=== PATIENT | female | born 1935 | race Caucasian/White ===

== ENCOUNTER 2017-01-30 11:43 | Inpatient (IN) | payer MEDICARE, OTHER ==
[2017-01-30] MEDS ORDERED: Sodium Chloride 0.9% 10 ML Syringe FLUSH PRN (15:30)
[2017-01-30] MEDS ORDERED: Temazepam 15 MG Cap PO PRN (15:30)
[2017-01-30] MEDS ORDERED: Magnesium Hydroxide 400 MG/5 ML Susp 30 ML Cup PO PRN (15:30)
[2017-01-30 16:25] LABS: CHLORIDE,CL 100 mEq/L (98-106); SODIUM,NA 138 mEq/L (136-145)
[2017-01-30] MEDS: Enoxaparin 40 MG/0.4 ML Syringe SUBCUT SCH (19:00)
[2017-01-30] MEDS: Insulin Aspart 100 Units/ML 3 ML Pen SUBCUT SCH (19:01)
[2017-01-30] MEDS: Levothyroxine 150 MCG Tab PO SCH (19:37)
[2017-01-30] MEDS: metFORMIN 500 MG Tab PO SCH (19:37)
[2017-01-30] MEDS: Insulin Detemir 100 Units/ML 3 ML Pen SUBCUT SCH (20:32)
[2017-01-31] MEDS ORDERED: Aspirin 325 MG Tab PO SCH (08:00)
[2017-01-31] MEDS: metFORMIN 500 MG Tab PO SCH ×2 (08:39→19:38)
[2017-01-31] MEDS: Metoprolol Succinate 25 MG Tab.ER PO SCH (08:40)
[2017-01-31] MEDS: Lisinopril 5 MG Tab PO SCH (08:40)
[2017-01-31] MEDS: Insulin Aspart 100 Units/ML 3 ML Pen SUBCUT SCH ×2 (08:42→12:05)
[2017-01-31] MEDS ORDERED: Cholecalciferol (Vitamin D3) 1,000 Unit Tab PO SCH (17:00)
[2017-01-31] MEDS ORDERED: Insulin Aspart 100 Units/ML 3 ML Pen SUBCUT SCH (17:00)
[2017-01-31] MEDS ORDERED: Simvastatin 10 MG Tab PO SCH (17:00)
[2017-01-31] MEDS: Enoxaparin 40 MG/0.4 ML Syringe SUBCUT SCH (17:46)
[2017-01-31] MEDS: Aspirin/Dipyridamole 200-25 MG Cap.ER PO SCH (19:38)
[2017-01-31] MEDS: Levothyroxine 150 MCG Tab PO SCH (19:39)
[2017-01-31] MEDS: Insulin Detemir 100 Units/ML 3 ML Pen SUBCUT SCH (20:43)
--- NOTE | 2017-02-01 06:58 | PN ---
DATE: 01/31/2017 S: Donna Burkett admitted with a TIA. Her CTA of her head and neck shows just a 50% blockage of the right carotid. O: HEENT: The patient has still difficulty with speech, but improving. NECK: Supple. CHEST: Clear. CARDIAC: Regular. Echo pending. ASSESSMENT: TRANSIENT ISCHEMIC ATTACK. P: I am going to start her on some Aggrenox today. RHONDA/JOESPH /[id number]
[2017-02-01] MEDS: Lisinopril 5 MG Tab PO SCH (07:34)
[2017-02-01] MEDS: Aspirin/Dipyridamole 200-25 MG Cap.ER PO SCH (07:35)
[2017-02-01] MEDS: metFORMIN 500 MG Tab PO SCH (07:35)
[2017-02-01] MEDS: Metoprolol Succinate 25 MG Tab.ER PO SCH (07:36)
[2017-02-01] MEDS: Insulin Aspart 100 Units/ML 3 ML Pen SUBCUT SCH (07:36)
[2017-02-01 07:37] VITALS: BP 153/84
[2017-02-01] MEDS ORDERED: Insulin Aspart 100 Units/ML 3 ML Pen SUBCUT SCH (17:30)
[2017-02-02] MEDS ORDERED: Insulin Aspart 100 Units/ML 3 ML Pen SUBCUT SCH (08:00)
--- NOTE | 2017-02-04 08:18 | DISCH ---
HISTORY: Donna Burkett comes in with a TIA with loss of speech. She was in the hospital, placed on observation, also had some chest pain. Placed on telemetry that was fine. Lab, x-ray, and troponins x2 were good. CBC and urine looked good, other than glycosuria. Blood sugars were somewhat elevated 76 on the day of discharge. I did do a CTA of the head and neck, had some carotid stenosis. Echocardiogram looks normal. DISCHARGE MEDICATIONS: Home medications minus aspirin plus Aggrenox b.i.d. DISCHARGE DIAGNOSIS: 1. TRANSIENT ISCHEMIC ATTACK. 2. DIABETES MELLITUS. 3. HYPOTHYROIDISM. 4. HYPERTENSION. 5. HYPERLIPIDEMIA. RHONDA/JOESPH /[id number]
== END 2017-02-01 10:57 | disposition home or self-care (01) | DRG 69 ==
LOC: CC.ACU 11:43 → UNDOADMIN 14:16 → CC.MS 14:16
PROVIDERS: ADMIT General Practice; ATTEND General Practice
DX: R51 Headache (principal); G45.9 Transient cerebral ischemic attack, unspecified; R07.9 Chest pain, unspecified; M19.90 Unspecified osteoarthritis, unspecified site; E78.00 Pure hypercholesterolemia, unspecified; R42 Dizziness and giddiness; I10 Essential (primary) hypertension; E11.9 Type 2 diabetes mellitus without complications; Z79.4 Long term (current) use of insulin; R53.83 Other fatigue; Z86.73 Personal history of transient ischemic attack (TIA), and cerebral infarction without residual deficits; E03.9 Hypothyroidism, unspecified; R79.0 Abnormal level of blood mineral; R35.1 Nocturia; Z88.8 Allergy status to other drugs, medicaments and biological substances; Z79.82 Long term (current) use of aspirin; Z79.899 Other long term (current) drug therapy; I65.29 Occlusion and stenosis of unspecified carotid artery; E78.5 Hyperlipidemia, unspecified
CPT/HCPCS: 82962; Q3014; 36415; 70496; 70498; 71020; 80053; 81001; 82550; 83615; 83735; 83880; 84443; 84484; 85025; 85379; 85610; 86140; 93005; 93306; A9270-GY; J1650; J1815-GY; Q9967

== ENCOUNTER 2018-01-06 16:36 | Observation (INO) | payer MEDICARE, OTHER ==
--- NOTE | 2018-01-06 17:16 | EDM.PDOC ---
ED HPI GENERAL MEDICAL PROBLEM - General Chief Complaint: General Stated Complaint: hypoglycemia, falls Time Seen by Provider: 01/06/18 16:55 Source of Information: Reports: Patient History Limitations: Reports: No Limitations - History of Present Illness INITIAL COMMENTS - FREE TEXT/NARRATIVE: Donna is a pleasant 82 year old female with PMH of hypertension, hyperlipidemia, and type II DM, who presents to the ED via [facility] with c/o multiple falls and weakness this afternoon. She reports that this morning she was feeling well. She reports she was outside this afternoon when she got very weak and fell over. She reports she tried to get up and get back into the house but was unable to and fell a few more times trying to get up, as she was so weak. She reports she did "lose consciousness." She was unable to get up so she pushed her Life Alert and EMS arrived. EMS reports on arrival she was standing leaning on her car in the garage. Initially her blood glucose was 33. She reports she is a type II DM. She reports that her blood sugar this morning was 87. She reports she took 9 units Novolog. She then reports her blood sugar at noon was "over 100." She reports she took her insulin. She thinks it was 6 units of novolog. EMS staff report that they gave her some apple juice and her blood sugar came up to 86. She reports she has been eating and drinking per normal. She reports she had a bowl of cereal for breakfast and a bowl of soup and some crackers for lunch. She has been taking her medications as prescribed. She is on 28 units of basalglar at HS, 9 units of novolog in the am, 6 at noon, and 7 at HS. She is also on metformin 1000 mg in am and 500 at supper. She denies any N/V/D, abdominal pain, urinary symptoms, chest pain, shortness of breath, cough , fever, chills. She has no complaints other than her "legs are jerky." She does c/o some lower back pain. Reports it is not severe. Denies any numbness, tingling, radiation of pain, or weakness in either legs. Onset: Today, Sudden Duration: Resolved Prior to Arrival Back Pain Score (Numeric/FACES): 3 - Related Data Allergies Allergy/AdvReac Type Severity Reaction Status Date / Time promethazine HCl AdvReac Mild restless Verified 01/06/18 17:36 [From Phenergan] legs Home Meds: Home Meds Ascorbate Calcium [Vitamin C] 500 mg PO 1700 01/20/15 [History] Beta-Carotene(A) W-C & E/Min [Vision Vitamins] 1 tab PO 1700 01/20/15 [History] Cholecalciferol (Vitamin D3) [Vitamin D3] 2,000 unit PO 1700 01/20/15 [History] Insulin Aspart [NovoLOG] 6 units SUBCUT 1200 01/20/15 [History] Insulin Aspart [NovoLOG] 7 units SUBCUT 1700 01/20/15 [History] Insulin Aspart [NovoLOG] 9 units SUBCUT 0830 01/20/15 [History] Levothyroxine Sodium [Synthroid] 75 mcg PO BEDTIME 01/20/15 [History] Metoprolol Succinate 50 mg PO DAILY 01/20/15 [History] Simvastatin [Zocor] 10 mg PO 1700 01/20/15 [History] Vitamin B Complex 1 tab PO 169901/20/15 [History] Vitamin E 1,000 unit PO 0 01/20/15 [History] metFORMIN [Glucophage] 1,000 mg PO QAM 01/20/15 [History] Lisinopril 5 mg PO DAILY 01/30/17 [History] Magnesium Oxide [Magnesium] 500 mg PO DAILY 01/30/17 [History] Propylene Glycol/PEG 400/Pf [Systane 0.3-0.4% Eye Drops] 1 each OP DAILY [History] Clopidogrel Bisulfate [Clopidogrel] 75 mg PO DAILY 01/06/18 [History] Insulin Glargine,Hum.Rec.Anlog [Basaglar Kwikpen U-100] 28 unit SQ QPM 01/06/18 [History] Past Medical History HEENT History: Reports: Cataract Cardiovascular History: Reports: Blood Clots/VTE/DVT Gastrointestinal History: Reports: Other (See Below) Other Gastrointestinal History: Gall bladder surgery in 1989. Endocrine/Metabolic History: Reports: Diabetes, Type II, Other (See Below) Other Endocrine/Metabolic History: Thyroid surgery - Past Surgical History Musculoskeletal Surgical History: Reports: Arthroscopic Knee Social & Family History - Tobacco Use Smoking Status *Q: Never Smoker Years of Tobacco use: 15 Used Tobacco, but Quit: Yes Month/Year Tobacco Last Used: unknown Second Hand Smoke Exposure: No - Recreational Drug Use Recreational Drug Use: No ED ROS GENERAL - Review of Systems Review Of Systems: ROS reveals no pertinent complaints other than HPI. Constitutional: Reports: Weakness. Denies: Fever, Chills, Malaise, Fatigue, Decreased Appetite HEENT: Reports: No Symptoms Respiratory: Reports: No Symptoms. Denies: Shortness of Breath, Cough Cardiovascular: Reports: No Symptoms, Lightheadedness. Denies: Chest Pain, Dyspnea on Exertion, Edema, Syncope Endocrine: Reports: Low Glucose. Denies: Fatigue GI/Abdominal: Reports: No Symptoms. Denies: Abdominal Pain, Constipation, Diarrhea, Decreased Appetite, Nausea, Vomiting : Reports: No Symptoms. Denies: Dysuria, Frequency, Urgency Musculoskeletal: Reports: Back Pain Skin: Reports: Other (small abrasion to right cheek and under right nostril) Neurological: Reports: No Symptoms, Dizziness, Weakness. Denies: Confusion, Numbness, Tingling Psychiatric: Reports: No Symptoms Hematologic/Lymphatic: Reports: No Symptoms Immunologic: Reports: No Symptoms ED EXAM, GENERAL - Physical Exam Exam: See Below Exam Limited By: No Limitations General Appearance: Alert, WD/WN, No Apparent Distress Eye Exam: Bilateral Eye: PERRL Nose: Other (small abrasion under right nostrl) Head: Atraumatic, Normocephalic Neck: Normal Inspection, Supple, Non-Tender, Full Range of Motion Respiratory/Chest: No Respiratory Distress, Lungs Clear, Normal Breath Sounds, No Accessory Muscle Use, Chest Non-Tender Cardiovascular: Normal Peripheral Pulses, Regular Rate, Rhythm, No Edema, No Gallop, No JVD, No Murmur, No Rub Peripheral Pulses: 2+: Dorsalis Pedis (L), Dorsalis Pedis (R) GI/Abdominal: Normal Bowel Sounds, Soft, Non-Tender, No Organomegaly, No Distention, No Abnormal Bruit, No Mass Back Exam: Normal Inspection, Full Range of Motion. No: Paraspinal Tenderness, Vertebral Tenderness Extremities: Normal Inspection, Normal Range of Motion, Non-Tender, Normal Capillary Refill, No Pedal Edema Neurological: Alert, Oriented, CN II-XII Intact, Normal Cognition, Normal Gait, Normal Reflexes, No Motor/Sensory Deficits Psychiatric: Normal Affect, Normal Mood Skin Exam: Warm, Dry, Intact, Normal Color, No Rash Lymphatic: No Adenopathy Course - Vital Signs Last Recorded V/S: Last Vital Signs Temp 98.3 F 01/06/18 16:44 Pulse 95 01/06/18 18:09 Resp 16 01/06/18 16:44 BP 167/90 H 01/06/18 18:09 Pulse Ox 97 01/06/18 16:44 - Orders/Labs/Meds Orders: Active Orders 24 hr Category Date Time Status UA W/MICROSCOPIC [URIN] Stat Lab 01/06/18 17:00 Ordered Lactated Ringers [Ringers, Lactated] 1,000 ml Med 01/06/18 18:03 Active IV .BOLUS Medication Orders Lactated Ringer's (Ringers, Lactated) 1,000 mls @ 999 mls/hr IV .BOLUS ONE Stop: 01/06/18 19:03 Last Admin: 01/06/18 18:12 Dose: 999 mls/hr Labs: Laboratory Tests 01/06/18 01/06/18 01/06/18 Range/Units 16:53 17:00 17:00 WBC 9.3 (5.0-10.0) 10^3/uL RBC 4.71 (4.00-5.50) 10^6/uL Hgb 13.5 (12.0-16.0) g/dL Hct 41.8 (37.0-47.0) % MCV 88.7 (82.0-94.0) fL MCH 28.7 (27.0-32.0) pg MCHC 32.3 L (33.0-38.0) g/dL RDW Coeff of John 13.7 (11.0-15.0) % Plt Count 232 (150-400) 10^3/uL Neut % (Auto) 81.6 (35-85) % Lymph % (Auto) 9.8 L (10-55) % [place] % (Auto) 7.2 (0-16) % Eos % (Auto) 1.3 (0-5) % Baso % (Auto) 0.1 (0-3) % Neut # (Auto) 7.62 H (1.80-7.00) 10^3/uL Lymph # (Auto) 0.91 L (1.00-4.80) 10^3/uL [place] # (Auto) 0.67 (0.00-0.80) 10^3/uL Eos # (Auto) 0.12 (0.00-0.45) 10^3/uL Baso # (Auto) 0.01 10^3/uL Sodium 140 (136-145) mEq/L Potassium 3.8 (3.5-5.0) mEq/L Chloride 101 (98-106) mEq/L Carbon Dioxide 29 (21-32) mmol/L BUN 13 (7-18) mg/dL Creatinine 0.7 (0.6-1.0) mg/dL Est Cr Clr Drug Dosing 47.56 mL/min Estimated GFR (MDRD) > 60 (>=60) mL/min Glucose 106 H (75-99) mg/dL Calcium 9.9 (8.4-10.1) mg/dL Total Bilirubin 0.5 (0.0-1.0) mg/dL AST 20 (15-37) U/L ALT 23 (12-78) U/L Alkaline Phosphatase 71 (46-116) U/L C-Reactive Protein < 0.2 L (0.2-0.8) mg/dL Total Protein 7.5 (6.4-8.2) g/dL Albumin 4.1 (3.4-5.0) g/dL Urine Color Light yellow (YELLOW) Urine Appearance Clear (CLEAR) Urine pH 5.5 (4.5-8.0) Ur Specific [place] 1.015 (1.003-1.020) Urine Protein Trace H (NEGATIVE) mg/dL Urine Glucose (UA) Negative (NEGATIVE) mg/dL Urine Ketones Negative (NEGATIVE) mg/dL Urine Occult Blood Negative (NEGATIVE) Urine Nitrite Negative (NEGATIVE) Urine Bilirubin Negative (NEGATIVE) Urine Urobilinogen 0.2 (0.2-1.0) EU/dL Ur Leukocyte Esterase Negative (NEGATIVE) Urine RBC Not seen (0-5) /HPF Urine WBC 0-5 (0-5) /HPF Ur Squamous Epith Cells Occasional H (NOT SEEN) /HPF Meds: Medications Generic Name Dose Route Start Last Admin Trade Name Freq PRN Reason Stop Dose Admin Lactated Ringer's 1,000 mls @ 999 mls/hr 01/06/18 18:03 01/06/18 18:12 Ringers, Lactated IV 01/06/18 19:03 999 mls/hr .BOLUS ONE Administration Discontinued Medications Generic Name Dose Route Start Last Admin Trade Name Nahid PRN Reason Stop Dose Admin Metoprolol Tartrate 2.5 mg 01/06/18 18:08 01/06/18 18:09 Lopressor IVPUSH 01/06/18 18:09 2.5 mg ONETIME ONE Administration - Re-Assessments/Exams Free Text/Narrative Re-Assessment/Exam: 01/06/18 18:00 Discussed labs with patient. Will admit patient to observation with telemetry to Dr. Farnsworth overnight for monitoring of blood sugars, blood pressure, and pulse. Daughter Adenike notified of plan. Patient agreeable to admission. Departure - Departure Time of Disposition: 18:35 Disposition: Refer to Observation Condition: Good Clinical Impression: Type II diabetes mellitus Qualifiers: Diabetes mellitus termite treater insulin use: with termite treater use Diabetes mellitus complication status: with hypoglycemia Diabetes mellitus complication detail: without coma Qualified Code(s): E11.649 - Type 2 diabetes mellitus with hypoglycemia without coma; Z79.4 - USP (current) use of insulin Hypertension Qualifiers: Hypertension type: unspecified Qualified Code(s): I10 - Essential (primary) hypertension - Discharge Information Forms: ED Department Discharge - Problem List & Annotations (1) Hypertension SNOMED Code(s): 34895194 Code(s): I10 - ESSENTIAL (PRIMARY) HYPERTENSION Status: Acute Current Visit: Yes Qualifiers: Hypertension type: unspecified Qualified Code(s): I10 - Essential (primary ) hypertension (2) Type II diabetes mellitus SNOMED Code(s): 68589507 Code(s): E11.9 - TYPE 2 DIABETES MELLITUS WITHOUT COMPLICATIONS Status: Acute Current Visit: Yes Qualifiers: Diabetes mellitus longterm insulin use: with termite treater use Diabetes mellitus complication status: with hypoglycemia Diabetes mellitus complication detail: without coma Qualified Code(s): E11.649 - Type 2 diabetes mellitus with hypoglycemia without coma; Z79.4 - USP (current) use of insulin - Problem List Review Problem List Initiated/Reviewed/Updated: Yes - My Orders Last 24 Hours: My Active Orders 01/06/18 17:00 UA W/MICROSCOPIC [URIN] Stat 01/06/18 18:03 Lactated Ringers [Ringers, Lactated] 1,000 ml IV .BOLUS - Assessment/Plan Admission H&P: Please use this note as an admission H&P Last 24 Hours: My Active Orders 01/06/18 17:00 UA W/MICROSCOPIC [URIN] Stat 01/06/18 18:03 Lactated Ringers [Ringers, Lactated] 1,000 ml IV .BOLUS Plan: Admit to observation with telemetry to Dr. Farnsworth Monitor blood glucose and blood pressure overnight Dr. Fanrsworth to see in am.
[2018-01-06 17:21] LABS: CHLORIDE,CL 101 mEq/L (98-106); SODIUM,NA 140 mEq/L (136-145)
[2018-01-06] MEDS ORDERED: Lactated Ringers 500 ML IV ONE (17:39)
[2018-01-06] MEDS ORDERED: Metoprolol Tartrate 5 MG/5 ML SDV IVPUSH ONE ×2 (17:40→18:08)
[2018-01-06] MEDS ORDERED: Lactated Ringers 1,000 ML IV ONE (18:03)
[2018-01-06] MEDS ORDERED: Acetaminophen 325 MG Tab PO PRN (19:13)
[2018-01-06] MEDS ORDERED: Temazepam 15 MG Cap PO PRN (19:13)
[2018-01-06] MEDS ORDERED: Sodium Chloride 0.9% 10 ML Syringe FLUSH PRN (19:13)
[2018-01-06] MEDS ORDERED: Ondansetron 4 MG/2 ML SDV IV PRN (19:13)
[2018-01-06] MEDS ORDERED: Magnesium Hydroxide 400 MG/5 ML Susp 30 ML Cup PO PRN (19:13)
[2018-01-06] MEDS ORDERED: metFORMIN 500 MG Tab PO SCH (20:00)
[2018-01-06] MEDS ORDERED: Enoxaparin 40 MG/0.4 ML Syringe SUBCUT SCH (20:00)
[2018-01-06] MEDS ORDERED: Levothyroxine 150 MCG Tab PO SCH (20:00)
[2018-01-06] MEDS: Insulin Aspart 100 Units/ML 3 ML Pen SUBCUT SCH (20:16)
[2018-01-07] MEDS: Insulin Aspart 100 Units/ML 3 ML Pen SUBCUT SCH ×2 (07:48→12:05)
[2018-01-07] MEDS ORDERED: Metoprolol Succinate 25 MG Tab.ER PO SCH (08:00)
[2018-01-07] MEDS ORDERED: Clopidogrel 75 MG Tab PO SCH (08:00)
[2018-01-07] MEDS ORDERED: metFORMIN 500 MG Tab PO SCH (08:00)
[2018-01-07] MEDS ORDERED: Lisinopril 5 MG Tab PO SCH (08:00)
[2018-01-07 11:53] VITALS: BP 141/65
[2018-01-07] MEDS ORDERED: Simvastatin 10 MG Tab PO SCH (17:00)
--- NOTE | 2018-01-08 09:20 | DISCH ---
HOSPITAL COURSE: This 82-year-old white female came in by ambulance with hypoglycemic reaction with blood sugar around 30, admitted to the hospital, blood pressure was up for observation. PHYSICAL EXAMINATION: At the time of discharge exam: NECK: Supple. CHEST: Clear. CARDIAC: Regular. NEUROLOGIC: Patient alert and oriented. VITAL SIGNS: Blood pressure was down to fairly good range. LABORATORY DATA: Blood sugars were elevated because she did not have her insulin last night. Rest of labs here in the hospital, a low magnesium so I advised that she go ahead and double her magnesium. CBC looked good. Panel 8 looked good. TSH was good. C-reactive protein was good. Urinalysis looked good. DISPOSITION: The patient is now discharged home. We will see her back in the clinic and we can do a 2-hour postprandial blood sugar. DISCHARGE MEDICATIONS: Home medications plus increase in the magnesium to 500 b.i.d. DISCHARGE DIAGNOSIS: 1. DIABETES MELLITUS WITH HYPOGLYCEMIC REACTION. 2. HYPOTHYROIDISM. 3. HYPERTENSION. 4. HYPERLIPIDEMIA. RHONDA/JOESPH /[id number]
== END 2018-01-07 14:00 | disposition home or self-care (01) ==
LOC: CC.ED 16:36 → CC.MS 18:30 → UNDOADMOB 18:30 → CC.MS 18:38
PROVIDERS: ADMIT Nurse Practitioner Family; ATTEND General Practice
DX: E11.649 Type 2 diabetes mellitus with hypoglycemia without coma (principal); E03.9 Hypothyroidism, unspecified; I10 Essential (primary) hypertension; E78.5 Hyperlipidemia, unspecified; W19.XXXA Unspecified fall, initial encounter; Z88.8 Allergy status to other drugs, medicaments and biological substances; Z79.4 Long term (current) use of insulin; Z79.899 Other long term (current) drug therapy
CPT/HCPCS: 36415; 80053; 81001; 82962; 83735; 84443; 85025; 86140; 93005; 96372; 96374; 99285; A9270-GY; G0378; J1650; J3490; J7120

== ENCOUNTER 2018-06-24 13:33 | Observation (INO) | payer MEDICARE, OTHER ==
[2018-06-24 13:59] LABS: CHLORIDE,CL 98 mEq/L (98-106); SODIUM,NA 133 mEq/L (136-145)
[2018-06-24] MEDS ORDERED: Magnesium Hydroxide 400 MG/5 ML Susp 30 ML Cup PO PRN (16:49)
[2018-06-24] MEDS ORDERED: Temazepam 15 MG Cap PO PRN (16:49)
[2018-06-24] MEDS ORDERED: Acetaminophen 325 MG Tab PO PRN (16:49)
[2018-06-24] MEDS: Insuln Aspart Prot/Insulin Aspart 100 Units/ML 3 ML FlexPen SUBCUT SCH (17:44)
[2018-06-24] MEDS: Insulin Aspart 100 Units/ML 3 ML Pen SUBCUT SCH ×2 (17:44→20:56)
[2018-06-24] MEDS: Enoxaparin 30 MG/0.3 ML Syringe SUBCUT SCH (17:45)
[2018-06-24] MEDS ORDERED: Sodium Chloride 0.9% 1,000 ML IV SCH (18:00)
[2018-06-24] MEDS: LEVOTHYROXINE SODIUM 75 MCG PO SCH ×2 (19:56→20:03)
[2018-06-25] MEDS: LEVOTHYROXINE 75 MCG PO SCH ×2 (06:52→08:32)
[2018-06-25] MEDS: METOPROLOL SUCCINATE 50 MG PO SCH (08:27)
[2018-06-25] MEDS: **PTOM** Lisinopril 10 MG Tab PO SCH (08:28)
[2018-06-25] MEDS: Insulin Aspart 100 Units/ML 3 ML Pen SUBCUT SCH ×4 (08:30→20:59)
[2018-06-25] MEDS: Insuln Aspart Prot/Insulin Aspart 100 Units/ML 3 ML FlexPen SUBCUT SCH ×2 (08:31→17:30)
--- NOTE | 2018-06-25 11:46 | PCM.PN ---
- General Info Date of Service: 06/25/18 Admission Dx/Problem (Free Text): TIA Functional Status: Reports: Pain Controlled, Tolerating Diet. Denies: Ambulating - Review of Systems General: Reports: Weakness. Denies: Fever, Fatigue HEENT: Reports: No Symptoms Pulmonary: Denies: Shortness of Breath, Cough, Sputum Cardiovascular: Denies: Chest Pain, Edema, Lightheadedness Gastrointestinal: Denies: Abdominal Pain, Nausea, Vomiting Genitourinary: Reports: No Symptoms Musculoskeletal: Reports: No Symptoms Skin: Reports: No Symptoms Neurological: Reports: Confusion (confusion is improved from admit), Weakness - Patient Data Vitals - Most Recent: Last Vital Signs Temp 97.8 F 06/25/18 08:00 Pulse 79 06/25/18 08:00 Resp 18 06/25/18 08:00 BP 148/68 H 06/25/18 08:28 Pulse Ox 97 06/25/18 08:00 Weight - Most Recent: 139 lb Lab Results Last 24 Hours: Laboratory Results - last 24 hr 06/24/18 06/24/18 06/24/18 Range/Units 13:39 13:39 13:39 WBC 6.9 (5.0-10.0) 10^3/uL RBC 4.68 (4.00-5.50) 10^6/uL Hgb 13.6 (12.0-16.0) g/dL Hct 40.9 (37.0-47.0) % MCV 87.4 (82.0-94.0) fL MCH 29.1 (27.0-32.0) pg MCHC 33.3 (33.0-38.0) g/dL RDW Coeff of John 13.6 (11.0-15.0) % Plt Count 204 (150-400) 10^3/uL Neut % (Auto) 72.6 (35-85) % Lymph % (Auto) 16.2 (10-55) % [place] % (Auto) 10.0 (0-16) % Eos % (Auto) 0.9 (0-5) % Baso % (Auto) 0.3 (0-3) % Neut # (Auto) 5.03 (1.80-7.00) 10^3/uL Lymph # (Auto) 1.12 (1.00-4.80) 10^3/uL [place] # (Auto) 0.69 (0.00-0.80) 10^3/uL Eos # (Auto) 0.06 (0.00-0.45) 10^3/uL Baso # (Auto) 0.02 10^3/uL Sodium 133 L (136-145) mEq/L Potassium 4.2 (3.5-5.0) mEq/L Chloride 98 (98-106) mEq/L Carbon Dioxide 29 (21-32) mmol/L BUN 11 (7-18) mg/dL Creatinine 0.8 (0.6-1.0) mg/dL Est Cr Clr Drug Dosing TNP Estimated GFR (MDRD) > 60 (>=60) mL/min Glucose 155 H (75-99) mg/dL POC Glucose (75-105) mg/dl Calcium 9.2 (8.4-10.1) mg/dL C-Reactive Protein < 0.2 L (0.2-0.8) mg/dL Urine Color Yellow (YELLOW) Urine Appearance Clear (CLEAR) Urine pH 7.0 (4.5-8.0) Ur Specific [place] 1.015 (1.003-1.020) Urine Protein Negative (NEGATIVE) mg/dL Urine Glucose (UA) Negative (NEGATIVE) mg/dL Urine Ketones 15 H (NEGATIVE) mg/dL Urine Occult Blood Negative (NEGATIVE) Urine Nitrite Negative (NEGATIVE) Urine Bilirubin Negative (NEGATIVE) Urine Urobilinogen 0.2 (0.2-1.0) EU/dL Ur Leukocyte Esterase Trace H (NEGATIVE) Urine RBC Not seen (0-5) /HPF Urine WBC 0-5 (0-5) /HPF Ur Squamous Epith Cells Occasional H (NOT SEEN) /HPF Urine Bacteria Occasional H (NOT SEEN) /HPF 06/24/18 06/24/18 06/25/18 Range/Units 17:06 20:10 07:26 WBC (5.0-10.0) 10^3/uL RBC (4.00-5.50) 10^6/uL Hgb (12.0-16.0) g/dL Hct (37.0-47.0) % MCV (82.0-94.0) fL MCH (27.0-32.0) pg MCHC (33.0-38.0) g/dL RDW Coeff of John (11.0-15.0) % Plt Count (150-400) 10^3/uL Neut % (Auto) (35-85) % Lymph % (Auto) (10-55) % [place] % (Auto) (0-16) % Eos % (Auto) (0-5) % Baso % (Auto) (0-3) % Neut # (Auto) (1.80-7.00) 10^3/uL Lymph # (Auto) (1.00-4.80) 10^3/uL [place] # (Auto) (0.00-0.80) 10^3/uL Eos # (Auto) (0.00-0.45) 10^3/uL Baso # (Auto) 10^3/uL Sodium (136-145) mEq/L Potassium (3.5-5.0) mEq/L Chloride (98-106) mEq/L Carbon Dioxide (21-32) mmol/L BUN (7-18) mg/dL Creatinine (0.6-1.0) mg/dL Est Cr Clr Drug Dosing Estimated GFR (MDRD) (>=60) mL/min Glucose (75-99) mg/dL POC Glucose 118 H 280 H 187 H (75-105) mg/dl Calcium (8.4-10.1) mg/dL C-Reactive Protein (0.2-0.8) mg/dL Urine Color (YELLOW) Urine Appearance (CLEAR) Urine pH (4.5-8.0) Ur Specific [place] (1.003-1.020) Urine Protein (NEGATIVE) mg/dL Urine Glucose (UA) (NEGATIVE) mg/dL Urine Ketones (NEGATIVE) mg/dL Urine Occult Blood (NEGATIVE) Urine Nitrite (NEGATIVE) Urine Bilirubin (NEGATIVE) Urine Urobilinogen (0.2-1.0) EU/dL Ur Leukocyte Esterase (NEGATIVE) Urine RBC (0-5) /HPF Urine WBC (0-5) /HPF Ur Squamous Epith Cells (NOT SEEN) /HPF Urine Bacteria (NOT SEEN) /HPF Med Orders - Current: Current Medications Acetaminophen (Tylenol) 650 mg PO Q4H PRN PRN Reason: Pain (Mild 1-3)/fever Clopidogrel Bisulfate (Plavix) 75 mg PO DAILY DIMA Last Admin: 06/25/18 08:28 Dose: 75 mg Enoxaparin Sodium (Lovenox) 30 mg SUBCUT Q24H [facility] Last Admin: 06/24/18 17:45 Dose: 30 mg Insulin Aspart (Novolog) 0 unit SUBCUT WITHMEALSANDBED [facility]; Protocol Last Admin: 06/25/18 08:30 Dose: 2 units Insulin Aspart (Novolog Mix 70-30) 10 unit SUBCUT WITHDINNER [facility] Last Admin: 06/24/18 17:44 Dose: 10 units Insulin Aspart (Novolog Mix 70-30) 20 unit SUBCUT WITHBREAKFAST [facility] Last Admin: 06/25/18 08:31 Dose: 20 unit Lisinopril (Prinivil) 10 mg PO DAILY [facility] Last Admin: 06/25/18 08:28 Dose: 10 mg Magnesium Hydroxide (Milk Of Magnesia) 30 ml PO Q12H PRN PRN Reason: Constipation Ptom Metoprolol Succinate [ Metoprolol Succinate ] 50 Mg 50 mg PO DAILY [facility] Last Admin: 06/25/18 08:27 Dose: 50 mg Levothyroxine 75 Mcg (Own Med) 75 mcg PO DAILY [facility] Last Admin: 06/25/18 08:32 Dose: Not Given Temazepam (Restoril) 15 mg PO BEDTIME PRN PRN Reason: Sleep Discontinued Medications Sodium Chloride (Normal Saline) 1,000 mls @ 75 mls/hr IV ASDIRECTED [facility] Stop: 06/25/18 07:19 Last Admin: 06/24/18 17:45 Dose: 75 mls/hr Ptom Levothyroxine Sodium [Synthroid] 75 Mcg 75 mcg PO BEDTIME [facility] Last Admin: 06/24/18 20:03 Dose: Not Given - Exam General: Alert, Oriented HEENT: Mucous Membr. Moist/[place] Neck: Supple Lungs: Clear to Auscultation, Normal Respiratory Effort Cardiovascular: Regular Rate, Regular Rhythm GI/Abdominal Exam: Normal Bowel Sounds, Soft, Non-Tender Back Exam: Normal Inspection Extremities: Normal Inspection, No Pedal Edema - Problem List & Annotations (1) TIA (transient ischemic attack) SNOMED Code(s): 560129430 Code(s): G45.9 - TRANSIENT CEREBRAL ISCHEMIC ATTACK, UNSPECIFIED Status: Acute Priority: High Current Visit: Yes - Problem List Review Problem List Initiated/Reviewed/Updated: Yes - Assessment Assessment:: TIA - Plan Plan:: Patient admits to feeling well today. She denies that she was confused yesterday and tries to rationalize why she parked on the handicap ramp in front of physical therapy, clothing was inside out and she relates that she drove "just fine" and she "will wear her clothing inside out sometimes as it is dark when I get dressed". She was seen by DR. 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 Admitted with concerns of TIA. Is currently on Plavix. Patient denies any weakness today, no dysphagia. Is oriented x3, answers questions appropriately today. Daughter called, is concerned that patient may be having issues with depression as well. CT of the head yesterday was negative. All labs essentially negative as well. Will continue with PT consult today, have patient ambulate in [place] and monitor for another day. May need to have patient discharged with daughter to monitor more closely as she lives alone out by [place].
[2018-06-25] MEDS: Enoxaparin 30 MG/0.3 ML Syringe SUBCUT SCH (18:33)
[2018-06-26] MEDS: LEVOTHYROXINE 75 MCG PO SCH (07:32)
[2018-06-26] MEDS: **PTOM** Lisinopril 10 MG Tab PO SCH (08:26)
[2018-06-26] MEDS: METOPROLOL SUCCINATE 50 MG PO SCH (08:27)
[2018-06-26] MEDS: Insuln Aspart Prot/Insulin Aspart 100 Units/ML 3 ML FlexPen SUBCUT SCH (08:28)
[2018-06-26] MEDS: Insulin Aspart 100 Units/ML 3 ML Pen SUBCUT SCH ×2 (08:29→11:58)
[2018-06-26 13:00] VITALS: BP 134/75
--- NOTE | 2018-06-26 21:24 | PCM.DCSUM1 ---
Discharge Summary - Hospital Course Free Text/Narrative:: Patient was admitted to observation for concerns with TIA. Patient had driven to [place] as she relates she wasn't feeling well. Had pulled up in the front of physical therapy, parked on the side walk and left care door open. Clothing was inside out. PT states she seemed confused so was seen by Jenn. Patient related that she was not feeling well last night, felt weak, was incontinent of urine. [place] she needed to be evaluated as "things just didn't seem right". She questions if she had a low blood sugar. Dr. Hernandez had seen patient 3 weeks ago with weakness and reported confusion. Had EKG and carotid ultrasound that were normal. MRI of the brain was done and showed CVA. Had also been advised to change her insulin to 70/30 but had not done so as she wanted to use the insulin that she had already paid for. She typically took Basaglar at bedtime and Novolog at meal times. CT scan of the head was done which was negative. Labs essentially all negative , no UTI. BLood sugar on admit 118. Diagnosis: Stroke: No - Discharge Data Discharge Date: 06/26/18 Discharge Disposition: Home, Self-Care 01 Condition: Good - Discharge Diagnosis/Problem(s) (1) TIA (transient ischemic attack) SNOMED Code(s): 937530814 ICD Code: G45.9 - TRANSIENT CEREBRAL ISCHEMIC ATTACK, UNSPECIFIED Status: Acute Priority: High - Patient Summary/Data Complications: none Consults: Consultations 06/24/18 16:49 Consult to Case Management/Make Ready Mechanic [CONS] Routine PT Evaluation and Treatment [CONS] Routine Hospital Course: Observation stay has been uneventful. Oriented x3. Answers all questions appropriately. Still questions low blood sugars that may have led to confusion. Has history of CVA and is currently on Plavix with new question of TIA. Appetite has been good, blood sugars running high. Ambulating with staff and is steady. Will discharge home with daughter. Continue same current dose of insulin that she had been taking at home until has used her supply and then Dr. Hernandez will switch her to 70/30 for ease of use. Family has been concerned about depression so Zoloft 25 mg daily was started. Will see Dr. Hrenandez back in clinic in 2 weeks. - Patient Instructions Diet: Usual Diet as Tolerated Activity: As Tolerated - Discharge Plan *PRESCRIPTION DRUG MONITORING PROGRAM REVIEWED*: No *COPY OF PRESCRIPTION DRUG MONITORING REPORT IN PATIENT BESSIE: No Prescriptions/Med Rec: Sertraline [Zoloft] 25 mg PO BEDTIME #30 tab Home Medications: Home Meds Ascorbate Calcium [Vitamin C] 500 mg PO 1700 01/20/15 [History] Beta-Carotene(A) W-C & E/Min [Vision Vitamins] 1 tab PO 1700 01/20/15 [History] Cholecalciferol (Vitamin D3) [Vitamin D3] 2,000 unit PO 1700 01/20/15 [History] Insulin Aspart [NovoLOG] 6 units SUBCUT 1200 01/20/15 [History] Insulin Aspart [NovoLOG] 7 units SUBCUT 1700 01/20/15 [History] Insulin Aspart [NovoLOG] 9 units SUBCUT 0830 01/20/15 [History] Levothyroxine Sodium [Synthroid] 75 mcg PO DAILY 01/20/15 [History] Metoprolol Succinate 50 mg PO DAILY 01/20/15 [History] Simvastatin [Zocor] 10 mg PO 1700 01/20/15 [History] Vitamin B Complex 1 tab PO 0 01/20/15 [History] Vitamin E 1,000 unit PO 1700 01/20/15 [History] metFORMIN [Glucophage] 1,000 mg PO QAM 01/20/15 [History] Lisinopril 10 mg PO DAILY 01/30/17 [History] Magnesium Oxide [Magnesium] 500 mg PO DAILY 01/30/17 [History] Clopidogrel Bisulfate [Clopidogrel] 75 mg PO DAILY 01/06/18 [History] Insulin Glargine,Hum.Rec.Anlog [Basaglar Kwikpen U-100] 22 unit SQ QPM #0 [Rx] Propylene Glycol/PEG 400/Pf [Systane 0.3-0.4% Eye Drop] 1 each OP DAILY [History] Sertraline [Zoloft] 25 mg PO BEDTIME #30 tab 06/26/18 [Rx] Patient Handouts: Transient Ischemic Attack Referrals: Gato Hernandez MD [Primary Care Provider] - (Follow up with Dr. Hernandez in 2 weeks.) - Discharge Summary/Plan Comment DC Time >30 min.: No Discharge Summary/Plan Comment: Discharge home Start Zoloft 25 mg daily Follow up with Dr. Hernandez in 2 weeks. - General Info Date of Service: 06/26/18 Admission Dx/Problem (Free Text: TIA Functional Status: Reports: Pain Controlled, Tolerating Diet, Ambulating - Review of Systems General: Denies: Fever, Weakness, Fatigue HEENT: Reports: No Symptoms Pulmonary: Denies: Shortness of Breath, Cough Cardiovascular: Denies: Chest Pain, Edema, Lightheadedness Gastrointestinal: Denies: Abdominal Pain, Nausea, Vomiting Genitourinary: Reports: No Symptoms Musculoskeletal: Reports: No Symptoms Skin: Reports: No Symptoms Neurological: Reports: No Symptoms - Patient Data Vitals - Most Recent: Last Vital Signs Temp 96.9 F 06/26/18 12:00 Pulse 82 06/26/18 12:00 Resp 18 06/26/18 12:00 BP 134/75 06/26/18 12:00 Pulse Ox 98 06/26/18 12:00 Weight - Most Recent: 139 lb Lab Results - Last 24 hrs: Laboratory Results - last 24 hr 06/26/18 06/26/18 Range/Units 07:53 11:51 POC Glucose 325 H 206 H (75-105) mg/dl Med Orders - Current: Current Medications Discontinued Medications Acetaminophen (Tylenol) 650 mg PO Q4H PRN PRN Reason: Pain (Mild 1-3)/fever Clopidogrel Bisulfate (Plavix) 75 mg PO DAILY [facility] Last Admin: 06/26/18 08:26 Dose: 75 mg Enoxaparin Sodium (Lovenox) 30 mg SUBCUT Q24H [facility] Last Admin: 06/25/18 18:33 Dose: 30 mg Sodium Chloride (Normal Saline) 1,000 mls @ 75 mls/hr IV ASDIRECTED [facility] Stop: 06/25/18 07:19 Last Admin: 06/24/18 17:45 Dose: 75 mls/hr Insulin Aspart (Novolog) 0 unit SUBCUT WITHMEALSANDBED [facility]; Protocol Last Admin: 06/26/18 11:58 Dose: 4 units Insulin Aspart (Novolog Mix 70-30) 10 unit SUBCUT WITHDINNER [facility] Last Admin: 06/25/18 17:30 Dose: 10 units Insulin Aspart (Novolog Mix 70-30) 20 unit SUBCUT WITHBREAKFAST [facility] Last Admin: 06/26/18 08:28 Dose: 20 unit Lisinopril (Prinivil) 10 mg PO DAILY [facility] Last Admin: 06/26/18 08:26 Dose: 10 mg Magnesium Hydroxide (Milk Of Magnesia) 30 ml PO Q12H PRN PRN Reason: Constipation Ptom Levothyroxine Sodium [Synthroid] 75 Mcg 75 mcg PO BEDTIME [facility] Last Admin: 06/24/18 20:03 Dose: Not Given Ptom Metoprolol Succinate [ Metoprolol Succinate ] 50 Mg 50 mg PO DAILY [facility] Last Admin: 06/26/18 08:27 Dose: 50 mg Levothyroxine 75 Mcg (Own Med) 75 mcg PO DAILY [facility] Last Admin: 06/26/18 07:32 Dose: 75 mcg Temazepam (Restoril) 15 mg PO BEDTIME PRN PRN Reason: Sleep - Exam General: Reports: Alert, Oriented HEENT: Reports: Mucous Membr. Moist/[place] Neck: Reports: Supple Lungs: Reports: Clear to Auscultation, Normal Respiratory Effort Cardiovascular: Reports: Regular Rate, Regular Rhythm GI/Abdominal Exam: Normal Bowel Sounds, Soft, Non-Tender Skin: Reports: Warm, Dry Neurological: Reports: No New Focal Deficit
== END 2018-06-26 14:10 | disposition home or self-care (01) ==
LOC: CC.MS 13:33 → CC.FCMC 13:33 → CC.MS 15:08
PROVIDERS: ADMIT Nurse Practitioner Family; ATTEND Family Medicine
DX: G45.9 Transient cerebral ischemic attack, unspecified (principal); R41.0 Disorientation, unspecified; I10 Essential (primary) hypertension; E11.9 Type 2 diabetes mellitus without complications; E03.9 Hypothyroidism, unspecified; Z86.73 Personal history of transient ischemic attack (TIA), and cerebral infarction without residual deficits; Z79.01 Long term (current) use of anticoagulants; Z79.4 Long term (current) use of insulin; Z88.8 Allergy status to other drugs, medicaments and biological substances
CPT/HCPCS: 36415; 70450; 80048; 81001; 82962; 85025; 86140; 93005; 96360; 96361; 96372; 97164-GP; A9270-GY; G0378; J1650; J1815-GY; J7030